=== PATIENT | male | born 1995 | race Caucasian/White ===

== ENCOUNTER 2016-09-19 16:58 | Emergency (ER) | payer BC, OTHER ==
[2016-09-19 17:03] VITALS: BP 161/103; PULSE 80; RESP 20; TEMP 97.9; O2SAT 98
--- NOTE | 2016-09-19 17:28 | EDPHY ---
H & P Time Seen by Provider: 09/19/16 17:05 HPI/ROS: CHIEF COMPLAINT: Back pain HISTORY OF PRESENT ILLNESS: Patient has been having intermittent lower back pain for the past 2 months. It is usually worse when he bends over or moves. Over the last 24-36 hours it is worse. Described as a dull ache in the center of his low back which worse with position. Sometimes radiates into his right leg. Not associated with fever chills or weakness or numbness in extremities or incontinence. No recent injury or trauma. REVIEW OF SYSTEMS: Abdomen: no vomiting, diarrhea, abdominal pain Skin: no rash Neuro: No weakness or numbness Constitutional: no fever : no urinary symptoms; no dysuria or hematuria PAST MEDICAL HISTORY: Negative Social history: No IV drug abuse General Appearance: Alert and conversant, cooperative. Respiratory: Normal respiratory effort, breath sounds equal, lungs are clear to auscultation. Cardiovascular: Regular rate and rhythm. No murmur. Gastrointestinal: Abdomen is soft and non tender. Neurological: Alert and oriented x3. Normally conversant. Face symmetric, normal movement and sensation in all extremities. Patellar reflexes 2+ symmetric , toes downgoing, no clonus. Skin: Warm and dry, no rashes. Musculoskeletal: No midline point tenderness on the spine. He has some left lower lumbar paraspinal muscle tenderness. Emergency Department course/MDM: X-ray performed because of greater than 6 weeks of symptoms. More likely soft tissue musculoskeletal. I think epidural abscess or other infection, spinal cord abnormality, fracture, aortic aneurysm or vascular problem all unlikely. Procedure: trigger point injection Indication: Back Pain Standard sterile technique including Chlorhexidine prep used and verbal consent obtained. Risk benefit and alternatives discussed. Patient was injected left lower lumbar area with 6 mL 0.5% bupivacaine without epinephrine at the area of greatest point tenderness; tolerated procedure well. Smoking Status: Current every day smoker Constitutional: Initial Vital Signs Temperature (C) 36.6 C 09/19/16 16:59 Heart Rate 80 09/19/16 16:59 Respiratory Rate 20 09/19/16 16:59 Blood Pressure 161/103 H 09/19/16 16:59 O2 Sat (%) 98 09/19/16 16:59 O2 Delivery Mode Room Air Allergies/Adverse Reactions: bacitracin [From Neosporin ([id number])] Allergy (Verified 09/19/16 17:03) neomycin [From Neosporin ([id number])] Allergy (Verified 09/19/16 17:03) polymyxin B [From Neosporin ([id number])] Allergy (Verified 09/19/16 17:03) Home Medications: Medication Instructions Recorded Cyclobenzaprine [Flexeril] 10 mg PO TID PRN #15 tab 09/19/16 MDM/Departure - MDM Imaging Results: Lumbar spine personally interpreted negative. Imaging: I viewed and interpreted images myself - Depart Disposition: Home, Routine, Self-Care Clinical Impression: Back pain Qualifiers: Back pain location: low back pain Chronicity: acute Back pain laterality: bilateral Sciatica presence: without sciatica Qualified Code(s): M54.5 - Low back pain Condition: Good Instructions: Acute Low Back Pain (ED) Additional Instructions: Ice to sore area as you are doing. Return immediately for weakness or numbness in extremities or incontinence or worsening back pain or fever. Oral ibuprofen 600 mg every 6-8 hours for the next 3-4 days. Prescriptions: Cyclobenzaprine [Flexeril] 10 mg PO TID PRN #15 tab PRN Reason: back pain Referrals: luis miguel Sevilla [Other] - As per Instructions (telephone order clerk room service for ED)
== END 2016-09-19 17:54 | disposition home or self-care (01) ==
PROC: 3E0233Z Introduction of Anti-inflammatory into Muscle, Percutaneous Approach (ICD-10-PCS; principal; 2016-09-19)
DX: M54.5 Low back pain (principal); F17.200 Nicotine dependence, unspecified, uncomplicated